=== PATIENT | female | born 1945 ===

== ENCOUNTER 2017-07-25 08:23 | Observation (INO) | payer MEDICARE ==
[2017-07-07 14:42] VITALS: BMI 27.9
[2017-07-25] MEDS ORDERED: ceFAZolin IV 1 gm in Dextrose 1 GM/50 ML BAG IVPB ONE (10:05)
[2017-07-25] MEDS ORDERED: Lactated Ringer's 1,000 ML IV ONE ×2 (10:12→11:03)
[2017-07-25] MEDS ORDERED: Midazolam 2 MG/2 ML VIAL ONE (10:15)
[2017-07-25] MEDS ORDERED: Propofol 10 mg/ml Inj (20 ML) ONE ×2 (10:16→10:24)
[2017-07-25] MEDS ORDERED: Clindamycin 2% Vaginal Cream(40 gm) ONE (10:17)
[2017-07-25] MEDS ORDERED: Vasopressin 20 Units/ml Inj ONE (10:40)
[2017-07-25] MEDS ORDERED: ePHEDrine 50 mg/ml Inj ONE (10:59)
[2017-07-25] MEDS ORDERED: Methylene Blue 10 mg/mL(10ml) IV ONE (11:07)
[2017-07-25] MEDS ORDERED: HYDROmorphone 0.5 mg/0.5 ml ISec IVP PRN (11:35)
[2017-07-25] MEDS ORDERED: Oxycodone/Acetaminophen 5/325 mg Tab PO PRN (11:42)
--- NOTE | 2017-07-25 11:45 | PCM.SURG1 ---
Surgeon's Initial Post Op Note - Surgeon's Notes Surgeon: Dr. Valderrama Scrum Coach: Dr Olvera Type of Anesthesia: General LMA Anesthesia Administered By: Dr. Miller Pre-Operative Diagnosis: Cystocele grade III, Rectocel grade IIII Operative Findings: cYSTOCELE GRADE III, RECTOCELE GRADE III Post-Operative Diagnosis: same as above Operation Performed: A/p Repair, Cystoscopy Specimen/Specimens Removed: Vaginal epithelium Estimated Blood Loss: EBL {In ML}: 10 Blood Products Given: N/A Drains Used: No Drains Post-Op Condition: Good Date of Surgery/Procedure: 07/25/17 Time of Surgery/Procedure: 11:44
--- NOTE | 2017-07-26 08:21 | OP ---
PROCEDURE DATE: 07/25/2017 PREOPERATIVE DIAGNOSES: This is a 72-year-old female with cystocele grade 3, rectocele grade 3. POSTOPERATIVE DIAGNOSES: This is a 72-year-old female with cystocele grade 3, rectocele grade 3. PROCEDURE: Anterior and posterior repair and cystoscopy. SURGEON: Agnieszka Valderrama MD. HEAD PORTER BAGGAGE: Dr. Olvera. TYPE OF ANESTHESIA: General. ANESTHESIOLOGIST: Dr. Crocker. FINDINGS: An anteverted uterus, noted to have a cystocele and a rectocele, grade 3, as well as complaining of chronic pelvic pain. COMPLICATIONS: None. ESTIMATED BLOOD LOSS: Approximately 10 mL. INTRAVENOUS FLUIDS: Approximately 1500. URINE OUTPUT: 400 mL. SPECIMEN: Vaginal epithelium. DESCRIPTION OF PROCEDURE: The patient was informed of the risk factors, benefits, and alternatives of the procedure. The risk factors included infection, bleeding, damage to the surrounding organs and tissue as well as fistula formation, the re-occurrence of the cystocele as well as the rectocele, dyspareunia, and chronic pelvic pain. She was also informed that this can re-occur. She understood all the risk factors, benefits, and alternatives. Upon signing consent, she was then taken to the operating room, prepped and draped in normal sterile fashion where anesthesia was found to be adequate prior to placed in dorsal lithotomy position. In that particular instance, a weighted speculum was placed into the vagina. The cystocele was examined under direct visualization. It was noted that she has a cystocele, grade 3. An Allis clamp was utilized to clamp close to the urethra and keeping close to the vaginal wall avoiding entry to her bladder. Though, in that particular instance, another Allis was at the apex and a vertical incision was then performed dissecting her vaginal wall away from the underlying tissue where combination of blunt and sharp dissection until we exposed completely the bulging bladder fully on both sides. We also used a gauze in order for the dissection. So, we dissected her bladder away from her cervix as well, her bladder from her cervix. In that particular instance, once we did the blunt dissection, we then did a series of interrupted sutures using 0-Vicryl, pushing the bladder back. When we tied her bladder, would not be suspended, it was well supported. In that particular instance, redundant vaginal epithelium was removed and it was closed with 2-0 Vicryl. Excellent hemostasis was noted. Now, attention was then turned to as far as the rectocele and using two Allis clamp was then performed as far as the triangle reducing the rectum and reapproximating the tissue with 0-Vicryl interrupted sutures. The rectocele was then reduced and then closing the vaginal epithelium with 2-0 Vicryl. A rectal exam was then performed, which demonstrated there was no sutures in the rectum. In that particular instance, the Riley was then removed and a cystoscopy was then performed in which evaluated the dome of the bladder and bilateral ureters were patent. Upon completion, all instruments were removed from the vagina, vaginal packing was placed. Instruments and lap counts were correct x2. Patient was then taken to the recovery room in stable condition. Agnieszka Valderrama MD
[2017-07-26 10:23] VITALS: O2SAT 96
[2017-07-26 18:18] VITALS: BP 132/82; PULSE 63; RESP 20; TEMP 97.5
== END 2017-07-26 19:20 | disposition home or self-care (01) ==
LOC: C.SDS 08:23 → C.4M 12:55
PROVIDERS: ADMIT Obstetrics & Gynecology; ATTEND Obstetrics & Gynecology
DX: N81.6 Rectocele (principal); N81.10 Cystocele, unspecified; G89.29 Other chronic pain
CPT/HCPCS: 57260; 88305; G0378; J0690; J1170; J2250; J2704; J3010; J7120